=== PATIENT | male | born 1990 | race Caucasian/White ===

== ENCOUNTER 2017-01-11 16:57 | Emergency (ER) | payer SELFPAY ==
[2017-01-11 17:21] VITALS: BP 134/77
[2017-01-11] MEDS ORDERED: Proparacaine 0.5% Ophth Soln 15 ML Bottle EYEBOTH SCH (17:30)
--- NOTE | 2017-01-11 17:46 | EDM.PDOC ---
ED HPI EYE COMPLAINT - General Chief Complaint: Eye Problems Stated Complaint: METAL IN RT EYE Time Seen by Provider: 01/11/17 17:30 Source: Reports: Patient History Limitations: Reports: No limitations - History of Present Illness INITIAL COMMENTS - FREE TEXT/NARRATIVE: HISTORY AND PHYSICAL: History of present illness: [Patient comes to the emergency room for reevaluation of right eye foreign body. 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 On January 08 he reported to the [place] emergency room and was evaluated. Patient reports that the provider removed the foreign body and he was started on antibacterial eyedrops. Patient does not remember the name of the medication. Since then, he continues to have a sensation of a foreign body to his right eye. His believes that she can see a black speck on the lateral aspect of his iris. No fever or chills. His right eye feels uncomfortable and is swollen. His any other complaints or concerns.] Review of systems: As per history of present illness and below otherwise all systems reviewed and negative. Past medical history: As per history of present illness and as reviewed below otherwise noncontributory. Surgical history: As per history of present illness and as reviewed below otherwise noncontributory. Social history: No reported history of drug or alcohol abuse. Family history: As per history of present illness and as reviewed below otherwise noncontributory. Physical exam: HEENT: Atraumatic, normocephalic. Visual acuity is obtained and documented in the nurse's notes. Upper lower right eyelids are erythematous and swollen. PERRLA. EOMI. No scleral icterus. On ophthalmic exam, no abnormalities appreciated to the optic disc. Colette sized fluorescein uptake appreciated to the 8:00 position of the right iris. No foreign body is appreciated. Neuro: Awake, alert, oriented. Motor and sensory unremarkable throughout. Exam nonfocal. Impression: [foreign body right eye] Plan: [Discussed with patient that he should continue eyedrops as previously prescribed. He is given referral to a local lead data architect instructed to followup tomorrow. He is in agreement with plan all questions are answered and concerns are addressed.] Definitive disposition and diagnosis as appropriate pending reevaluation and review of above. - Related Data Allergies/ADRs: Allergies No Known Allergies Allergy (Verified 01/11/17 17:17) Home Meds: Ambulatory Orders Medication Instructions Recorded Confirmed . [No Known Home Meds] 01/11/17 01/11/17 Social & Family History - Family History Family Medical History: Noncontributory - Tobacco Use Smoking Status *Q: Never Smoker - Alcohol Use Days Per Week of Alcohol Use: 2 Number of Drinks Per Day: 2 Total Drinks Per Week: 4 - Recreational Drug Use Recreational Drug Use: No ED ROS GENERAL - Review of Systems Review Of Systems: ROS reveals no pertinent complaints other than HPI. ED EXAM GENERAL W FULL EYE - Physical Exam Exam: See Below Course - Vital Signs Last Recorded V/S: Last Vital Signs Temp 98.3 F 01/11/17 17:18 Pulse 95 01/11/17 17:18 Resp 18 01/11/17 17:18 BP 134/77 01/11/17 17:18 Pulse Ox 99 01/11/17 17:18 - Orders/Labs/Meds Orders: Active Orders 24 hr Category Date Time Status Visual Acuity [Vision Test] [RC] ASDIRECTED Care 01/11/17 17:54 Active Meds: Medications Discontinued Medications Generic Name Dose Route Start Last Admin Trade Name Annabel PRN Reason Stop Dose Admin Proparacaine HCl 5 ml 01/11/17 17:30 01/11/17 18:09 Proparacaine 0.5% Ophth Soln EYEBOTH 1 dose ASDIRECTED ANDERSON Administration Departure - Departure Time of Disposition: 17:55 Disposition: Home, Self-Care 01 Condition: good Clinical Impression: Discomfort of right eye Instructions: Corneal Abrasion, [id number] Referrals: PCP,None [Primary Care Provider] - Forms: ED Department Discharge Additional Instructions: The following information is given to patients seen in the emergency department who are being discharged to home. This information is to outline your options for follow-up care. We provide all patients seen in our emergency department with a follow-up referral. The need for follow-up, as well as the timing and circumstances, are variable depending upon the specifics of your emergency department visit. If you don't have a primary care physician on staff, we will provide you with a referral. We always advise you to contact your personal physician following an emergency department visit to inform them of the circumstance of the visit and for follow-up with them and/or the need for any referrals to a consulting specialist. The emergency department will also refer you to a specialist when appropriate. This referral assures that you have the opportunity for follow-up care with a specialist. All of these measure are taken in an effort to provide you with optimal care, which includes your follow-up. Under all circumstances we always encourage you to contact your private physician who remains a resource for coordinating your care. When calling for follow-up care, please make the office aware that this follow-up is from your recent emergency room visit. If for any reason you are refused follow-up, please contact the [facility] emergency department at and asked to speak to the emergency department charge nurse. [address] [address] Phone the clinic listed above first thing tomorrow morning to schedule an appointment with the lead data architect. Tylenol or ibuprofen as needed for discomfort. [facility] as needed as discussed. - My Orders Last 24 Hours: My Active Orders 01/11/17 17:54 Visual Acuity [Vision Test] [RC] ASDIRECTED - Assessment/Plan Last 24 Hours: My Active Orders 01/11/17 17:54 Visual Acuity [Vision Test] [RC] ASDIRECTED
== END 2017-01-11 18:13 | disposition home or self-care (01) ==
LOC: MW.ED 16:57
DX: H57.8 Other specified disorders of eye and adnexa (principal)
CPT/HCPCS: 99282; 99283